=== PATIENT | male | born 1955 | race Caucasian/White ===

== ENCOUNTER → 2020-12-30 09:02 | Outpatient (CLI) | payer MEDICARE, SELFPAY ==
[2020-12-30 11:21] LABS: COVID19 -Nasal RAPID Negative (Negative)
== END ==
PROVIDERS: Visit Provider Student in an Organized Health Care Education/Training Program
DX: Z20.822 Contact with and (suspected) exposure to COVID-19 (principal); Z01.812 Encounter for preprocedural laboratory examination
CPT/HCPCS: 87635; C9803

== ENCOUNTER 2021-01-01 07:15 | Day surgery (SDC) | payer MEDICARE, SELFPAY ==
[2021-01-01] VITALS (7 sets, daily range): BP systolic 105–131; BP diastolic 67–77; PULSE 56–76; RESP 10–16; TEMP 36.1–36.2; O2SAT 92–98; BMI 29.6
--- NOTE | 2021-01-01 | PATH_ITS ---
[facility] [place] Accession Number: [id number] . 01 Material submitted: . PART A: esophagus, E-G Junction - GE JUNCTION BIOPSIES AT 37CM PART B: esophagus, E-G Junction - GE JUNCTION BIOPSIES AT 36CM . 01 Clinical history: . A-B: HISTORY OF VELASQUEZ'S . 02 Diagnosis: A-B. Gastroesophageal Junction, 37 cm, 36 cm, Biopsies: Squamocolumnar junctional mucosa with specialized intestinal metaplasia, consistent with Velasquez's esophagus. Negative for dysplasia and malignancy. V 01/06/2021 1120 Local . 02 Electronically signed: . Ledy Michelle MD, Pathologist NPI- [id number] . 01 Gross description: . Part A: GE JUNCTION BIOPSIES AT 37CM: Received in formalin are 4 fragment(s) of baez, soft tissue measuring 0.3 x 0.2 x 0.1 cm to 0.2 x 0.2 x 0.2 cm submitted entirely in 1 cassette(s) Part B: GE JUNCTION BIOPSIES AT 36CM: Received in formalin are 3 fragment(s) of baez, soft tissue measuring 0.3 x 0.2 x 0.2 cm to 0.2 x 0.2 x 0.1 cm submitted entirely in 1 cassette(s) /CHAS 01/02/2021 0925 Local . 02 Pathologist provided ICD-10: K22.70 . 02 CPT . 054208, [id number] Performed at: 01 [facility] [address] [id number] MD Kwame Morris MD Phone: [phone] Performed at: 02 [facility] [address] [place], [place] [id number] MD Ledy Michelle MD Phone: [phone]
[2021-01-01] MEDS: LACTATED RINGERS 1,000 ML 42 ML IV (08:20)
--- NOTE | 2021-01-01 08:37 | PM.HP.1 ---
History of Present Illness History of Present Illness Chief complaint: [facility] [place] Patient History Medical History (Updated 01/01/21 @ 06:45 by Kathrine Delgado RN) Barretts esophagus GERD (gastroesophageal reflux disease) Heartburn Hiatal hernia Surgical History (Updated 01/01/21 @ 06:45 by Kathrine Delgado RN) History of colonoscopy History of esophagogastroduodenoscopy (EGD) History of vasectomy Family & Social History Social History: household members spouse Tobacco & Substance use: Smoking Status Never smoker alcohol intake current alcohol intake frequency a few times a week Substance Use Type does not use Meds Home Medications and Allergies Home Medications Medication Instructions Recorded Confirmed Type omeprazole 40 mg PO BID 01/01/21 01/01/21 History Allergies Allergy/AdvReac Type Severity Reaction Status Date / Time No Known Drug Allergies Allergy Verified 01/01/21 08:05 Review of Systems Review of Systems ROS: Yes All systems reviewed with the patient and are negative except as otherwise documented Exam Vital Signs (past 8 hours): - 01/01/21 08:12 Temperature 97.0 F L Pulse Rate 56 L Respiratory Rate 12 Blood Pressure 131/77 Pulse Oximetry 98 Oxygen Delivery Method Room Air Narrative Exam Narrative: Awake alert and oriented x3, pupils equal round reactive to light, oropharynx clear, heart regular rate and rhythm, lungs clear to auscultation bilaterally, abdomen nontender and nondistended, extremities without edema, no gross neurologic deficits noted Assessment & Plan Assessment & Plan narrative: History of GERD and Han's esophagus for EGD COVID-19 COVID-19 status: Negative
[2021-01-01] MEDS: fentaNYL 250 MCG/5 ML INJ IV (08:42)
[2021-01-01] MEDS: MIDAZOLAM 5 MG/5 ML VIAL IV (08:42)
--- NOTE | 2021-01-01 08:58 | P.OP.ENDO_ITS ---
Operative Date/Time/Diagnoses Date of procedure: 01/01/21 Procedure & Clinicians Study performed: EGD with biopsy Moderate conscious sedation was administered by the endoscopy nurse and supervised by the endoscopist. The following parameters were monitored: Oxygen saturation, heart rate, blood pressure, and response to care. 5 mg of midazolam and 100 mcg of fentanyl given Same procedure as scheduled: Yes Indications: History of GERD and Han's esophagus Procedure Notes Procedure in detail: Prior to the procedure, history and physical was performed, and patient medications and allergies were reviewed. Preprocedure nursing history and assessment was reviewed. Patient identification and proposed procedure were verified by the physician and nurse in the procedure room. The physical status of the patient was reassessed after the procedure. After informed consent was obtained including risks, benefits, and alternatives, the scope was passed under direct vision. Throughout the procedure, the patient's blood pressure, pulse, and oxygen saturations were monitored continuously. The upper endoscope was introduced through the mouth and advanced to the 2nd portion of the duodenum. Retroflexion was performed in the stomach. The patient tolerated the procedure well. In the distal esophagus, there were scattered islands of salmon-colored mucosa and 6 tongues of salmon-colored mucosa extending above the gastroesophageal junction. The maximum longitudinal extent of these mucosal changes was 4 cm in length. The esophageal mucosal changes classified as Han's stage C2-M4 per [place] criteria. Four quadrant and targeted Biopsies were taken every 2 cm and placed into jars. The the proximal extent of salmon-colored mucosa was located at 34 cm from the incisors. The gastroesophageal junction was located at 38 cm from the incisors. A 2 cm hiatal hernia was noted. The crural pinch was located at 40 cm. There were scattered small sessile probable fundic gland polyps in the stomach. The remainder of the stomach appeared normal. The entire examined duodenum was normal appearing. Impression: Esophageal mucosal changes classified as Han's stage C2-M4 per [place] criteria. Biopsied Small hiatal hernia Scattered small likely fundic gland polyps in the stomach Normal appearing duodenum Sedation minutes: 15 Complications: other (EBL minimal. No complications) Post-procedure Plan for aftercare: Follow-up pathology results Resume home medications Resume previous diet Follow anti-reflux regimen Patient has a contact number available for emergencies. The signs and symptoms of potential delayed complications were discussed with the patient. Return to normal activities tomorrow. Written discharge instructions were provided to the patient. Discharge home with escort
== END 2021-01-01 09:34 | disposition home or self-care (01) ==
PROVIDERS: PCP Family Medicine; Referring Provider Family Medicine; Visit Provider Internal Medicine
PROC: 0DJ08ZZ Inspection of Upper Intestinal Tract, Via Natural or Artificial Opening Endoscopic (ICD-10-PCS; CPT 43235; principal; 2021-01-01 08:30)
DX: K22.70 Barrett's esophagus without dysplasia (principal); K21.9 Gastro-esophageal reflux disease without esophagitis; K44.9 Diaphragmatic hernia without obstruction or gangrene
CPT/HCPCS: 43239; J2250; J3010